=== PATIENT | female | born 1960 | race Caucasian/White ===

== ENCOUNTER 2022-07-05 13:31 | Emergency (ER) | payer BC, SELFPAY ==
[2022-07-05] VITALS (32 sets, daily range): BP systolic 118–140; BP diastolic 60–99; PULSE 58–82; RESP 9–26; TEMP 36.1; O2SAT 95–100
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
[2022-07-05] MEDS: Omnipaque 350 MG/ML 500 ML BTL-Imaging package IJ (14:26)
[2022-07-05] MEDS: Normal Saline Flush 10 ML SYR IVP (14:28)
[2022-07-05] MEDS: Normal Saline 1,000 ML 1000 ML IV (14:57)
[2022-07-05 15:04] LABS: Abs Immature Grans 0.12 10^3/uL (0.0-0.06); Absolute Basophil Count 0.05 10^3/uL (0.0-0.2); Absolute Eosinophil Count 0.07 10^3/uL (0.0-0.7); Absolute Lymphocyte Count 0.86 10^3/uL (1.2-3.4); Absolute Monocyte Count 0.43 10^3/uL (0.1-0.8); Basophils % 0.6; Eosinophils % 0.8; HCT 47.6 % (36.0-46.0); HGB 15.5 g/dL (11.2-15.7); Immature Grans % 1.3; Lymphocytes % 9.6; MCH 29.6 pg (27.0-33.0); MCHC 32.6 % (32.0-36.0); MCV 91 fL (80-95); MPV 10.6 fL (8.0-11.0); Monocytes % 4.8; Neutrophils % 82.9; Platelet Count 180 10^3/uL (130-400); RBC 5.24 10^6/uL (3.93-5.22); RDW-SD 47.4 fL; WBC 8.93 10^3/uL (4.4-10.8)
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
[2022-07-05] MEDS: fentaNYL 100 MCG/2 ML VIAL 50 MCG IVP (15:16)
[2022-07-05 15:18] LABS: ALT 33 U/L (14-59); AST 25 U/L (15-37); Albumin 4.1 g/dL (3.4-5.0); Alkaline Phosphatase 99 U/L (46-116); Anion Gap 7.9 mmol/L (3-11); BUN 29 mg/dL (7-18); Bilirubin, Total 0.3 mg/dL (0.2-1.0); CO2 27.1 mmol/L (21.0-32.0); CREATININE 0.8 mg/dL (0.55-1.02); Calcium 9.5 mg/dL (8.5-10.1); Chloride 104 mmol/L (98-107); Estimated GFR 83.26 (mL/min/1.73m2); Glucose 114 mg/dL (74-106); Lipase 81 U/L (73-393); Potassium 4.4 mmol/L (3.5-5.1); Sodium 139 mmol/L (136-145); Total Protein 7.6 g/dL (6.4-8.2)
[2022-07-05] MEDS: Ondansetron 4 MG/2 ML VIAL IVP (15:18)
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
[2022-07-05] MEDS: HYDROmorphone 2 MG/ML SYR 0.5 MG IVP (17:20)
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
[2022-07-05] MEDS: ACETAMINOPHEN 1,000 MG/100 ML BTL 400 MG IVPB (19:47)
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
== END 2022-07-05 21:30 | disposition home or self-care (01) ==
PROVIDERS: Physician Assistant; Emergency Provider Nurse Practitioner Family
DX: S06.6X9A Traumatic subarachnoid hemorrhage with loss of consciousness of unspecified duration, initial encounter (principal); S32.511A Fracture of superior rim of right pubis, initial encounter for closed fracture; S32.591A Other specified fracture of right pubis, initial encounter for closed fracture; R10.811 Right upper quadrant abdominal tenderness; S60.222A Contusion of left hand, initial encounter; V28.49XA Other motorcycle driver injured in noncollision transport accident in traffic accident, initial encounter
CPT/HCPCS: 74177; 80053; 83690; 86850; 86900; 86901; 93005; 96361; 96374; 96375; 99291; 70450; 71046; 71100; 71260; 72125; 73030; 73130; 85025; 85610; 93010; J0131; J1170; J2405; J3010